=== PATIENT | female | born 1940 | race Caucasian/White ===

== ENCOUNTER 2019-12-20 10:26 | Outpatient (CLI) | payer MEDICARE, SELFPAY ==
--- NOTE | 2019-12-20 10:37 | XR_ITS ---
WS: [id number] DEXA (DUAL ENERGY X-RAY ABSORPTIOMETRY) Bone mineral density was performed using a [employer] machine. HISTORY: POST MENOPAUSAL COMPARISON: 10/06/2016 Lumbar spine BMD (L1-L4): 1.121 g/cm2 T score: -0.5 Z score: 1.5 Total hip BMD: Left: 0.797 g/cm2. T score: -1.7 Z score: 0.3 Right: 0.797 g/cm2. T score: -1.7 Z score: 0.3 10 year probability of a major osteoporotic fracture is 16%. Compared to the prior study from 10/06/2016. Lumbar spine bone mineral density has increased by 2.1%. Bilateral hips bone mineral density has decreased by 1.4%. XR/XR DEXA axial skeleton* [id number] IMPRESSION: OSTEOPENIA based upon the WHO classification for females. Significant increase in bone mineral density in the lumbar spine since the prio r study. No significant change in lumbar spine BMD.
== END 2019-12-20 10:27 | disposition home or self-care (01) ==
LOC: RADWPI 10:36
PROVIDERS: Family Provider Physician Assistant; PCP Physician Assistant; Visit Provider Physician Assistant
DX: Z78.0 Asymptomatic menopausal state (principal); M85.89 Other specified disorders of bone density and structure, multiple sites
CPT/HCPCS: 77080

== ENCOUNTER → 2020-06-27 08:56 | Outpatient (BNVA) | payer OTHER, SELFPAY | PROVIDERS: Family Provider Physician Assistant; PCP Physician Assistant; Visit Provider Specialist | DX: G43.019 Migraine without aura, intractable, without status migrainosus (principal) | CPT/HCPCS: 99212; 99213 ==

== ENCOUNTER 2021-12-11 13:30 | Outpatient (CLI) | payer MEDICARE, SELFPAY ==
--- NOTE | 2021-12-11 13:49 | XR_ITS ---
WS: [id number] DEXA (DUAL ENERGY X-RAY ABSORPTIOMETRY) Bone mineral density was performed using a [employer] machine. HISTORY: OSTEOPOROSIS COMPARISON: 12/20/2019 Lumbar spine BMD (L1-L4): 1.118 g/cm2 T score: -0.5 Z score: 1.5 Total hip BMD: Left: 0.687 g/cm2. T score: -2.5 Z score: -0.4 Right: 0.638 g/cm2. T score: -2.9 Z score: -0.8 10 year probability of a major osteoporotic fracture is 25.2%. Compared to the prior study from 12/19/2021. Lumbar spine bone mineral density has decreased by 0.3%. Bilateral hips bone mineral density has decreased by 16.8%. XR/XR DEXA axial skeleton* [id number] IMPRESSION: OSTEOPOROSIS based upon the WHO classification for females. Significant decrease in bone mineral density within the hips since the prior .
== END 2021-12-11 13:31 | disposition home or self-care (01) ==
PROVIDERS: PCP Physician Assistant; Visit Provider Physician Assistant
DX: M81.0 Age-related osteoporosis without current pathological fracture (principal)
CPT/HCPCS: 77080

== ENCOUNTER 2022-02-11 13:18 | Outpatient (CLI) | payer MEDICARE, SELFPAY ==
--- NOTE | 2022-02-11 13:28 | MM_ITS ---
WS: [id number] BILATERAL 3D TOMOSYNTHESIS DIGITAL SCREENING MAMMOGRAPHY WITH CAD CLINICAL INFORMATION: SCREENING HISTORY: Screening mammogram. No current complaints. COMPARISON: January 02, 2021 TECHNIQUE: Bilateral CC and MLO views. FINDINGS: The breasts are composed of heterogeneous fibroglandular density tissue, which can limit the detectio n of small underlying mass lesions. No suspicious mass, asymmetry, calcifications, or architectural d istortion. No evidence of malignancy. Punctate calcifications. Lucent centered calcifications. Vascul ar calcifications. MM/[place] [id number] IMPRESSION: BI-RADS: 2-Benign FOLLOW UP: 1 Year Follow-up Recommend return to annual screening mammography.
== END 2022-02-11 13:19 | disposition home or self-care (01) ==
PROVIDERS: PCP Physician Assistant; Visit Provider Physician Assistant
DX: Z12.31 Encounter for screening mammogram for malignant neoplasm of breast (principal)
CPT/HCPCS: 77063; 77067

== ENCOUNTER 2022-09-17 07:41 | Emergency (ER) | payer MEDICARE, SELFPAY ==
[2022-09-17 07:47] VITALS: BP 104/56; PULSE 63; RESP 20; TEMP 36.8; O2SAT 100
--- NOTE | 2022-09-17 07:54 | W.ED.ALLEREA ---
HPI - Allergic Reaction General: Chief complaint: Allergic Reaction Stated complaint: Allergic Reaction Time Seen by Provider: 09/17/22 07:43 Source: patient Mode of arrival: ambulatory History of Present Illness: HPI narrative: 82-year-old female presents to the emergency room complaining of urticaria that began overnight. She relates it to having had red meat yesterday. She states she has had similar symptoms in the past. Mild itching. She has not had difficulty speaking swallowing or breathing. She has not had any shortness of breath. She was at an outpatient clinic's morning was referred to the ER for further evaluation. She is awake and alert without any problems. Patient reports she took hydroxyzine last night with no significant improvement MD complaint: allergic reaction and hives Onset (ago): hour(s) Associated symptoms: Deny abdominal pain, difficulty breathing, dysphagia, dizziness, facial swelling, hoarseness, itching, lip swelling, nausea, rash, tongue swelling or vomiting Severity: mild Treatment prior to arrival: other (Hydroxyzine) Previous Allergic Reaction History: other (Urticaria thought to be related to red meat ingestion) Review of Systems Const: Denies: fever(s), chills, body aches, change in appetite, fatigue or malaise ENMT: Denies: throat pain or hoarseness Card: Denies: chest pain, edema, dyspnea on exertion or orthopnea Resp: Denies: dyspnea, productive cough or non-productive cough GI: Denies: abdominal pain, nausea, vomiting or dysphagia : Denies: flank pain, difficulty voiding, dysuria, urinary frequency or urinary urgency Skin/Breast: Denies: rash or pruritus Neuro: Denies: dizziness All/Imm: Denies: tongue swelling or facial swelling Physical Exam Const: GENERAL APPEARANCE: cooperative and comfortable ORIENTATION/CONSCIOUSNESS: Yes awake, Yes oriented to person, Yes oriented to place and Yes oriented to time HENMT: COMMON NORMALS: normocephalic, atraumatic and hearing grossly normal bilaterally HEAD & SCALP: normocephalic and atraumatic Resp: COMMON NORMALS: normal respiratory effort, No retractions, No use of accessory muscles and clear to auscultation bilaterally AUSCULTATION: clear to auscultation bilaterally Cardio: COMMON NORMALS: regular rate, regular rhythm and No murmurs present (Cardio) RATE: regular rate RHYTHM: regular rhythm GI: COMMON NORMALS: Soft to palpation and No hepatosplenomegaly present AUSCULTATION: Yes normoactive bowel sounds PALPATION: Yes Soft to palpation, No Tenderness to palpation present (GI), No Guarding due to palpation present (GI) and Yes No hepatosplenomegaly present Extremity: COMMON NORMALS: normal to inspection, capillary refill normal, no clubbing, cyanosis or edema, no calf tenderness and no pedal edema Neuro: SENSORIUM/ORIENTATION: Yes oriented to person, Yes oriented to place and Yes oriented to time Skin: COMMON NORMALS: no rashes or lesions noted GENERAL SKIN EXAM: no rashes or lesions noted Course Vital Signs: Vital signs: Vital Signs Temperature 98.3 F 09/17/22 07:47 Pulse Rate 58 L 09/17/22 08:24 Respiratory Rate 20 H 09/17/22 08:24 Blood Pressure 125/107 09/17/22 08:24 Pulse Oximetry 100 09/17/22 08:24 Oxygen Delivery Me thod Room Air 09/17/22 07:47 MDM - Allergic Reaction Medical Decision Making Urticarial reaction possibly to the median Desitin especially given her history of previously having similar episodes. She has no respiratory compromise no swelling of the tongue or posterior pharynx steroids and antihistamines given discharge home on steroid taper continue to use Benadryl 25 mg 1 every 6 hours as needed. Advised patient likely that hives may wax and wane over the next several days before resolving. Discussed with her primary care provider possible referral to double end tenon operator. Medical Records I reviewed the patient's medical records. Lab Data I reviewed the patient's lab results. Discharge Plan Discharge Patient Disposition: Home Clinical Impression: Urticaria Condition: Stable Prescriptions: New prednisone 20 mg tablet 20 mg PO TID Qty: 15 0RF Rx Instructions: 1 p.o. 3 times daily x3 days, 1 p.o. twice daily x2 days, 1 p.o. daily x2 days diphenhydramine HCl 25 mg capsule 25 mg PO Q6H PRN (Reason: allergy symptoms) Qty: 30 0RF No Action zolmitriptan 5 mg tablet See Rx Instructions .ROUTE .COMPLEX Qty: 3 12RF Dose Instruction: TAKE 1 TAB AT ONSET OF HEADACHE IF NO RELIEF, MAY REPEAT 1 TAB AFTER AT LEAST 2 HRS MAX 2 IN 24HRS Rx Instructions: TAKE 1 TAB AT ONSET OF HEADACHE IF NO RELIEF, MAY REPEAT 1 TAB AFTER AT LEAST 2 HRS MAX 2 IN 24HRS Discharge Orders: Discharge ED (Routine); Ordered 09/17/22 Ordered By: Raj Fournier Referrals: Zaria Reynolds PA [Primary Care Provider] - Discharge Diet: As Directed Discharge Activity: Increase activity as tolerated Patient Instructions: Opioid Safety, Pain Management Activity Restrictions/Additional Instructions: You are seen today for urticaria (hives). Recommend you avoid red meat since you have noticed a correlation between urticaria and ingestion of red meat. Follow-up with your primary care doctor. It may take several days and the urticaria may wax and wane during that time the steroids will help decrease it. Your primary care doctor may wish to refer you to an double end tenon operator. Return to the emergency room if difficulty swallowing speaking or breathing. Coding Level of Care Code ED Chop Saw Operator for Sy Zafar
[2022-09-17] MEDS: diphenhydrAMINE 50 mg/mL SDV 1mL IVP (08:06)
[2022-09-17] MEDS: dexamethasone 10 mg/mL INJ IVP (08:07)
[2022-09-17 08:24] VITALS: BP 125/107; PULSE 58; RESP 20; O2SAT 100
== END 2022-09-17 08:25 | disposition home or self-care (01) ==
PROVIDERS: Emergency Provider Family Medicine; PCP Physician Assistant
DX: L50.9 Urticaria, unspecified (principal)
CPT/HCPCS: 96374; 96375; 99284; J1100; J1200

== ENCOUNTER 2023-02-17 11:51 | Outpatient (CLI) | payer MEDICARE, SELFPAY ==
--- NOTE | 2023-02-17 11:56 | MM_ITS ---
WS: [id number] Bilateral screening 3D tomosynthesis digital mammogram, 02/17/2023 Clinical Data: SCREENING Comparison: 02/11/2022, 01/02/2021, 12/06/2019, 08/09/2018, 07/14/2017, 08/06/2015, 07/10/2014, 07/05/2013, , 06/29/2011 Findings: The breast parenchymal pattern shows heterogeneous density. No spiculated masses or clustered calcifi cations are seen. There are no secondary signs of carcinoma. There are calcifications in the price of small vessels. There are mole markers on both breasts. Impression: 1. Negative bilateral mammogram unchanged. 2. Recommend annual screening mammograms. MM/[place] [id number] BIRADS: 1-Negative FOLLOW UP: 1 Year Follow-up The CAD tip length checker was used.
== END 2023-02-17 11:52 | disposition home or self-care (01) ==
LOC: RAD 11:51
PROVIDERS: PCP Physician Assistant; Visit Provider Physician Assistant
DX: Z12.31 Encounter for screening mammogram for malignant neoplasm of breast (principal)
CPT/HCPCS: 77063; 77067

== ENCOUNTER 2023-12-06 21:26 | Emergency (ER) | payer MEDICARE, SELFPAY ==
[2023-12-06 21:31] VITALS: BP 151/63; PULSE 58; RESP 16; TEMP 36.4; O2SAT 98
[2023-12-06 21:35] VITALS: BP 157/76; PULSE 61; RESP 16; O2SAT 96
--- NOTE | 2023-12-06 21:45 | CTR_ITS ---
PROCEDURE INFORMATION: Exam: CT Cervical Spine Without Contrast Exam date and time: 12/06/2023 9:57 PM Age: 83 years old Clinical indication: Injury or trauma; Fall; Blunt trauma and concussion/head injury TECHNIQUE: Imaging protocol: Computed tomography of the cervical spine without contrast. Radiation optimization: All CT scans at this facility use at least one of these dose optimization techniques: automated exposure control; mA and/or kV adjustment per patient size (includes targeted exams where dose is matched to clinical indication); or iterative reconstruction. COMPARISON: CT head wo con* [id number] 12/06/2023 9:54 PM RADIATION DOSE METRICS: Total DLP (mGy-cm): 161.87 FINDINGS: Bones: No acute fracture. Normal alignment. No significant disc bulge or herniation. No severe spinal canal stenosis. No significant neural foraminal narrowing. Moderate to severe disc height loss and vertebral endplate irregularities at C5-C6 and C6-C7. Lungs: Lung apices are normal. Soft tissues: Unremarkable. CT/CT cervical spin wo con* [id number] IMPRESSION: No acute findings.
--- NOTE | 2023-12-06 21:45 | CTR_ITS ---
PROCEDURE INFORMATION: Exam: CT Head Without Contrast Exam date and time: 12/06/2023 9:54 PM Age: 83 years old Clinical indication: Injury or trauma; Fall; Blunt trauma (contusions or hematomas) TECHNIQUE: Imaging protocol: Computed tomography of the head without contrast. Radiation optimization: All CT scans at this facility use at least one of these dose optimization techniques: automated exposure control; mA and/or kV adjustment per patient size (includes targeted exams where dose is matched to clinical indication); or iterative reconstruction. COMPARISON: No relevant prior studies available. RADIATION DOSE METRICS: Total DLP (mGy-cm): 1130.78 FINDINGS: Brain: There is mild cerebral atrophy. There is mild diffuse heterogeneity of the white matter attenuation, consistent with chronic white matter ischemic changes. Negative for intracranial hemorrhage. Negative for mass effect on the brain. Negative for midline shift of the brain. Cerebral ventricles: No ventriculomegaly. Paranasal sinuses: Left maxillary sinus hemorrhage. Mastoid air cells: Visualized mastoid air cells are well aerated. Oral cavity: Small volume gas in the left filter screen cleaner space. Bones: Slightly displaced fracture in the posterior aspect of the left orbital floor suspected but not well characterized. Soft tissues: Left periorbital soft tissue swelling. Left malar hematoma laterally. CT/CT head wo con* [id number] IMPRESSION: 1. Negative for acute intracranial injury. 2. Left orbital floor fracture suspected. Recommend dedicated maxillofacial CT scan correlation.
[2023-12-06 22:05] VITALS: BP 161/59; O2SAT 98
--- NOTE | 2023-12-06 23:18 | CTR_ITS ---
PROCEDURE INFORMATION: Exam: CT Maxillofacial Without Contrast Exam date and time: 12/06/2023 11:20 PM Age: 83 years old Clinical indication: Injury or trauma; Fall; Bleeding/hemorrhage and blunt trauma (contusions or hematomas) and concussion/head injury; Loss of consciousness; Eyelid and forehead and orbit/periorbital; Upper left; Head/scalp and forehead and orbit/periorbital TECHNIQUE: Imaging protocol: Computed tomography of the face without contrast. Radiation optimization: All CT scans at this facility use at least one of these dose optimization techniques: automated exposure control; mA and/or kV adjustment per patient size (includes targeted exams where dose is matched to clinical indication); or iterative reconstruction. COMPARISON: CT head wo con* [id number] 12/06/2023 9:54 PM RADIATION DOSE METRICS: Total DLP (mGy-cm): 555.18 FINDINGS: Orbital cavities: Orbit soft tissues are unremarkable. Globes are unremarkable. Paranasal sinuses: Air-fluid level with hemorrhage within the left maxillary sinus. Bones: Mildly depressed fracture in the posterior aspect of the left orbital floor. Soft tissues: Left periorbital laceration. Left periorbital soft tissue swelling. Left malar soft tissue hematoma. Small volume gas within left stave jointer space soft tissues. CT/CT facial bones wo con* [id number] IMPRESSION: Left orbital floor fracture.
--- NOTE | 2023-12-06 23:49 | ED_ITS ---
HPI - Fall General: Chief Complaint: Fall Stated Complaint: fall- hit head- head lac Time Seen by Provider: 12/06/23 21:38 History of Present Illness: This patient is an 83-year-old white female who presents to the emergency department for evaluation of a head injury after falling tonight. Patient states she tripped on her back porch and struck her head. Her witnessed this. He states she did not lose consciousness. Patient is having trouble remembering the incident. She is not on a blood thinner. She did sustain a laceration of the left eyebrow. No other injuries. Related Data Previous Rx's Medication Instructions Recorded zolmitriptan 5 mg tablet See Rx Instructions .Route 08/25/22 .COMPLEX #3 tabs diphenhydramine HCl 25 mg capsule 25 mg PO Q6H PRN allergy symptoms 09/17/22 #30 caps prednisone 20 mg tablet 20 mg PO TID #15 tabs 09/17/22 Allergies Allergy/AdvReac Type Severity Reaction Status Date / Time Opioids - Morphine Analogues Allergy Unknown Verified 12/06/23 21:36 Sulfa (Sulfonamide Allergy Unknown Verified 12/06/23 21:35 Antibiotics) Review of Systems General: Reports: 10 or more systems reviewed and unremarkable except in HPI and below Skin/Breast: Reports: other (Left eyebrow laceration) Physical Exam Const: COMMON NORMALS: no acute distress, patient oriented x3 and no limitations GENERAL APPEARANCE: cooperative and comfortable HENMT: COMMON NORMALS: Normal nasal mucous membranes and turbinates present, moist oral mucous membranes and oropharynx normal HEAD & SCALP: contusion (Left periorbital) and laceration (Left eyebrow) FACE & SINUS: normal facial exam NOSE: Normal nasal mucous membranes and turbinates present Eye: COMMON NORMALS: Equal, round and reactive pupils present, EOMs intact bilaterally and conjunctivae normal GENERAL EYE: appearance normal, both eyes and all related structures CONJUNCTIVA: Yes conjunctivae normal PUPIL: Yes Equal, round and reactive pupils present Neck/C-Spine: COMMON NORMALS: supple and no JVD Chest: COMMONS NORMALS: normal inspection of the chest Resp: COMMON NORMALS: normal respiratory effort and clear to auscultation bilaterally AUSCULTATION: clear to auscultation bilaterally Cardio: COMMON NORMALS: no JVD, regular rate, regular rhythm, No gallops present (Cardio), No murmurs present (Cardio) and No rub (Cardio) RATE: regular rate RHYTHM: regular rhythm GI: COMMON NORMALS: Normal to inspection, nondistended, normoactive bowel sounds present, Soft to palpation and non-tender AUSCULTATION: Yes normoactive bowel sounds PALPATION: Yes Soft to palpation : COMMON NORMALS: Yes no CVA tenderness BLADDER/KIDNEY EXAM: Yes no CVA tenderness Back/Pelvis: COMMON NORMALS: no CVA tenderness and thoracic and lumbar spine normal to inspection Extremity: COMMON NORMALS: normal to inspection Neuro: COMMON NORMALS: patient oriented x3 and CN's II-XII intact bilaterally Psych: COMMON NORMALS: mental status grossly normal, Normal thought process present and cooperative THOUGHT PROCESS: Normal thought process present Skin: COMMON NORMALS: no rashes or lesions noted, turgor normal and no jaundice GENERAL SKIN EXAM: no rashes or lesions noted and turgor normal Procedures Laceration Laceration 1: Site: face (Left eyebrow) Size (cm): 3 Pre-repair: irrigated extensively Skin layer closed with: other (Skin glue) Course Vital Signs: Vital signs: Vital Signs Temperature 97.5 F L 12/06/23 21:31 Pulse Rate 70 12/07/23 00:47 Respiratory Rate 16 12/07/23 00:47 Blood Pressure 121/70 12/07/23 00:47 Pulse Oximetry 100 12/07/23 00:47 Oxygen Delivery Me thod Room Air 12/07/23 00:30 MDM - Fall Medical Decision Making The head CT was read by the radiologist. There was a questionable left orbital floor fracture so they recommended CT of the face. CT of the cervical spine was read by the radiologist as normal. CT of the face did confirm a left orbital floor fracture. No entrapment of the inferior rectus muscle. Patient did have full range of motion of the left eye as well. Wound was repaired with glue as described in the procedure note. Patient was discharged in stable condition instructed to use ice to the left periorbital contusion. Follow-up with primary care physician as needed. Lab Data Radiology Impressions Cervical Spine CT 12/06/23 21:45 IMPRESSION: No acute findings. Head CT 12/06/23 21:45 IMPRESSION: 1. Negative for acute intracranial injury. 2. Left orbital floor fracture suspected. Recommend dedicated maxillofacial CT scan correlation. Face CT 12/06/23 23:18 IMPRESSION: Left orbital floor fracture. All radiology interpretation(s) finalized by discharge Discharge Plan Discharge Patient Disposition: Home Clinical Impression: Head injury Qualifiers: Encounter type: initial encounter Qualified Code(s): S09.90XA - Unspecified injury of head, initial encounter Eyebrow laceration Qualifiers: Encounter type: initial encounter Laterality: left Qualified Code(s): S01.112A - Laceration without foreign body of left eyelid and periocular area, initial encounter Fracture of orbital floor Qualifiers: Encounter type: initial encounter Fracture type: closed Laterality: left Qualified Code(s): S02.32XA - Fracture of orbital floor, left side, initial encounter for closed fracture Condition: Stable Prescriptions: No Action zolmitriptan 5 mg tablet See Rx Instructions .ROUTE .COMPLEX Qty: 3 12RF Dose Instruction: TAKE 1 TAB AT ONSET OF HEADACHE IF NO RELIEF, MAY REPEAT 1 TAB AFTER AT LEAST 2 HRS MAX 2 IN 24HRS Rx Instructions: TAKE 1 TAB AT ONSET OF HEADACHE IF NO RELIEF, MAY REPEAT 1 TAB AFTER AT LEAST 2 HRS MAX 2 IN 24HRS prednisone 20 mg tablet 20 mg PO TID Qty: 15 0RF Rx Instructions: 1 p.o. 3 times daily x3 days, 1 p.o. twice daily x2 days, 1 p.o. daily x2 days diphenhydramine HCl 25 mg capsule 25 mg PO Q6H PRN (Reason: allergy symptoms) Qty: 30 0RF Discharge Orders: Discharge ED (Routine); Ordered 12/07/23 Ordered By: Jacob Williamson Referrals: Zaria Reynolds PA [Primary Care Provider] - Coding Level of Care Code ED Webbing Supervisor for Sy Zafar
[2023-12-07] VITALS: BP 132/73; RESP 16; O2SAT 99
[2023-12-07 00:30] VITALS: BP 121/70; O2SAT 100
[2023-12-07 00:47] VITALS: BP 121/70; PULSE 70; RESP 16; O2SAT 100
== END 2023-12-07 00:50 | disposition home or self-care (01) ==
PROVIDERS: Emergency Provider Emergency Medicine; PCP Physician Assistant
DX: S01.112A Laceration without foreign body of left eyelid and periocular area, initial encounter (principal); S02.32XA Fracture of orbital floor, left side, initial encounter for closed fracture; W01.0XXA Fall on same level from slipping, tripping and stumbling without subsequent striking against object, initial encounter; S09.90XA Unspecified injury of head, initial encounter
CPT/HCPCS: 12013; 70450; 70486; 72125; 99284

== ENCOUNTER → 2024-02-02 15:06 | Outpatient (BNVA) | payer MEDICARE, SELFPAY | PROVIDERS: PCP Physician Assistant; Referring Provider Physician Assistant; Visit Provider Nurse Practitioner Family | DX: D48.5 Neoplasm of uncertain behavior of skin (principal); D22.4 Melanocytic nevi of scalp and neck; L82.1 Other seborrheic keratosis; L57.8 Other skin changes due to chronic exposure to nonionizing radiation; L57.0 Actinic keratosis; Z85.820 Personal history of malignant melanoma of skin | CPT/HCPCS: 11102; 17000; 99203 ==

== ENCOUNTER → 2024-02-23 08:00 | Outpatient (BNVA) | payer MEDICARE, SELFPAY | PROVIDERS: PCP Physician Assistant; Visit Provider Dermatology | DX: D22.5 Melanocytic nevi of trunk (principal); Z85.820 Personal history of malignant melanoma of skin; C44.319 Basal cell carcinoma of skin of other parts of face | CPT/HCPCS: 13132; 17311; 99213 ==

== ENCOUNTER 2024-02-25 10:54 | Outpatient (CLI) | payer MEDICARE, SELFPAY ==
--- NOTE | 2024-02-25 10:55 | MM_ITS ---
WS: [id number] BILATERAL SCREENING DIGITAL TOMOSYNTHESIS MAMMOGRAM WITH CAD HISTORY: SCREEN COMPARISON: 02/17/2023, 02/11/2022 Bilateral CC and MLO views with tomosynthesis and synthetic mammography submitted. Computer aided det ection analyzed. Breast composition: The breasts are heterogeneously dense, which may obscure small masses. No suspici ous masses, microcalcifications or architectural distortion. Stable vascular calcifications. MM/MM scr BI tomosynthesis [id number] IMPRESSION: BI-RADS: 2 - Benign FOLLOW UP: 1 Year Follow-up
== END 2024-02-25 10:55 | disposition home or self-care (01) ==
LOC: RAD 10:54
PROVIDERS: PCP Physician Assistant; Visit Provider Physician Assistant
DX: Z12.31 Encounter for screening mammogram for malignant neoplasm of breast (principal); R92.333 Mammographic heterogeneous density, bilateral breasts; R92.1 Mammographic calcification found on diagnostic imaging of breast
CPT/HCPCS: 77062; 77063; 77067; G0279

== ENCOUNTER → 2024-04-19 12:56 | Outpatient (BNVA) | payer MEDICARE, SELFPAY | PROVIDERS: PCP Physician Assistant; Visit Provider Dermatology | DX: L73.8 Other specified follicular disorders (principal); L81.4 Other melanin hyperpigmentation; Z08 Encounter for follow-up examination after completed treatment for malignant neoplasm; Z85.828 Personal history of other malignant neoplasm of skin; D22.5 Melanocytic nevi of trunk; L57.0 Actinic keratosis | CPT/HCPCS: 11603; 12032; 17000; 99213 ==

== ENCOUNTER 2024-06-26 13:57 | Outpatient (CLI) | payer MEDICARE, SELFPAY ==
--- NOTE | 2024-06-26 14:10 | XR_ITS ---
WS: [id number] SCREENING DEXA SCAN [place] CLINICAL INFORMATION: POSTMENOPAUSAL COMPARISON: None. FINDINGS: The L1-L4 bone mineral density measures 1.146 g/cm2. This corresponds to a T score score of -0.3 and Z score of 1.8. Left femoral neck bone mineral density measures 0.798 g/cm2. This corresponds to a T score of -1.7 and Z score of 0.6. Right femoral neck bone mineral density measures 0.773 g/cm2. This corresponds to a T score -1.9of and Z score of 0.4. Mean femoral neck bone mineral density measures 0.786 g/cm2. This corresponds to a T score of -1.8 and Z score of 0.5. XR/XR DEXA axial skeleton* [id number] IMPRESSION: Normal bone mineralization lumbar spine. Osteopenia femoral necks. Patient's FRAX calculated 10 year probability for major osteoporotic fracture i s 18.6% and osteoporotic hip fracture is 5.1%. Bone marrow density lumbar spine increased 2.5% Bone mineral density femoral necks increased 18.6%
== END 2024-06-26 13:58 | disposition home or self-care (01) ==
LOC: RAD 13:58
PROVIDERS: PCP Physician Assistant; Visit Provider Physician Assistant
DX: Z78.0 Asymptomatic menopausal state (principal); M85.88 Other specified disorders of bone density and structure, other site
CPT/HCPCS: 77080

== ENCOUNTER → 2024-08-14 11:33 | Outpatient (BNVA) | payer MEDICARE, SELFPAY | PROVIDERS: PCP Physician Assistant; Visit Provider Nurse Practitioner Family | DX: L81.4 Other melanin hyperpigmentation (principal); Z87.2 Personal history of diseases of the skin and subcutaneous tissue; Z85.828 Personal history of other malignant neoplasm of skin; Z08 Encounter for follow-up examination after completed treatment for malignant neoplasm; Z85.820 Personal history of malignant melanoma of skin; L57.0 Actinic keratosis | CPT/HCPCS: 17000; 99213 ==

== ENCOUNTER → 2025-02-14 11:11 | Outpatient (BNVA) | payer MEDICARE, SELFPAY | PROVIDERS: PCP Physician Assistant; Visit Provider Nurse Practitioner Family | DX: L71.0 Perioral dermatitis (principal); L82.1 Other seborrheic keratosis; L81.4 Other melanin hyperpigmentation; Z85.820 Personal history of malignant melanoma of skin; Z08 Encounter for follow-up examination after completed treatment for malignant neoplasm; Z85.828 Personal history of other malignant neoplasm of skin; Z87.2 Personal history of diseases of the skin and subcutaneous tissue; L57.0 Actinic keratosis | CPT/HCPCS: 17000; 99213 ==

== ENCOUNTER 2025-03-01 13:22 | Outpatient (CLI) | payer MEDICARE, SELFPAY ==
--- NOTE | 2025-03-01 13:25 | MM_ITS ---
WS: [id number] BILATERAL SCREENING DIGITAL TOMOSYNTHESIS MAMMOGRAM WITH CAD HISTORY: SCREENING COMPARISON: 02/25/2024, 02/17/2023 and 02/11/2022 Bilateral CC and MLO views with tomosynthesis and synthetic mammography submitted. Computer aided detection analyzed. Breast composition: The breasts are extremely dense, which lowers the sensitivity of mammography. No suspicious masses, microcalcifications or architectural distortion. Benign bilateral arterial calcifications. Dense fibroglandular breast parenchyma anteriorly. No distortion. MM/MM scr BI tomosynthesis [id number] IMPRESSION: BI-RADS: 2 - Benign FOLLOW UP: 1 Year Follow-up
== END 2025-03-01 13:23 | disposition home or self-care (01) ==
LOC: RAD 13:23
PROVIDERS: PCP Physician Assistant; Visit Provider Physician Assistant
DX: Z12.31 Encounter for screening mammogram for malignant neoplasm of breast (principal); R92.343 Mammographic extreme density, bilateral breasts; R92.1 Mammographic calcification found on diagnostic imaging of breast
CPT/HCPCS: 77063; 77067

== ENCOUNTER → 2025-03-29 09:39 | Outpatient (BNVA) | payer MEDICARE, SELFPAY | PROVIDERS: PCP Physician Assistant; Visit Provider Podiatrist Foot & Ankle Surgery | DX: L60.8 Other nail disorders (principal); M20.42 Other hammer toe(s) (acquired), left foot | CPT/HCPCS: 99203 ==